=== PATIENT | male | born 1955 | race Caucasian/White ===

== ENCOUNTER 2017-09-10 20:59 | Inpatient (IN) | payer OTHER ==
--- NOTE | 2017-09-10 22:41 | PDOC ---
History of Present Illness <Rachel Christine Angely - Last Filed: 09/11/17 01:38> - General History Source: Patient Exam Limitations: No Limitations - History of Present Illness Initial Comments: 09/10/17 22:45 The patient is a 62 year old male with history of hypertension, hyperlipidemia, and stroke in 2004 brought in by EMS for an episode of right upper extremity weakness this evening. The patient reports he was sitting on his couch drinking a beer at around 8 PM when he noticed he could not grab his drink secondary to RUE weakness. His weakness lasted approximately 15 minutes and resolved spontaneously. On ED evaluation, the patient is without physical complaint. He denies any chest pain or shortness of breath. He denies any nausea, vomiting, or diaphoresis. He denies any headache, blurred vision, or LOC. PCP: Dr. Lyman Denies smoking. Endorses beer and vodka consumption. <Ellen Meehan - Last Filed: 09/11/17 01:48> - General Chief Complaint: Alcohol intoxication Stated Complaint: RIGHT ARM WEAKNESS/INTOX Time Seen by Provider: 09/10/17 21:08 Past History - Suicide/Smoking/Psychosocial Hx Smoking History: Unknown if ever smoked Have you smoked in the past 12 months: No Information on smoking cessation initiated: No Hx Alcohol Use: No Drug/Substance Use Hx: No <Jl Christinepaula Florh - Last Filed: 09/11/17 01:38> <Ellen Meehan - Last Filed: 09/11/17 01:48> - Past Medical History Allergies/Adverse Reactions: Allergies Allergy/AdvReac Type Severity Reaction Status Date / Time No Known Allergies Allergy Verified 09/10/17 21:07 Review of Systems - Review of Systems Able to Perform ROS?: Yes Comments:: 09/10/17 22:49 GENERAL/CONSTITUTIONAL: No fever or chills. No generalized weakness. HEAD, EYES, EARS, NOSE AND THROAT: No change in vision. No ear pain or discharge. No sore throat. CARDIOVASCULAR: No chest pain or shortness of breath. RESPIRATORY: No cough, wheezing, or hemoptysis. GASTROINTESTINAL: No nausea, vomiting, diarrhea or constipation. GENITOURINARY: No dysuria, frequency, or change in urination. MUSCULOSKELETAL: No joint or muscle swelling or pain. No neck or back pain. SKIN: No rash NEUROLOGIC: +RUE weakness x 15 minutes. No headache, vertigo, loss of consciousness. ENDOCRINE: No increased thirst. No abnormal weight change. HEMATOLOGIC/LYMPHATIC: No anemia, easy bleeding, or history of blood clots. ALLERGIC/IMMUNOLOGIC: No hives or skin allergy. <Ellen Meehan - Last Filed: 09/11/17 01:48> *Physical Exam - Vital Signs Last Vital Signs Temp Pulse Resp BP Pulse Ox 98.6 F 87 20 132/76 97 09/10/17 21:07 09/10/17 21:07 09/10/17 21:07 09/10/17 21:07 09/10/17 21:07 <Rachel Christine - Last Filed: 09/11/17 01:38> - Vital Signs Last Vital Signs Temp Pulse Resp BP Pulse Ox 98.6 F 87 20 132/76 97 09/10/17 21:07 09/10/17 21:07 09/10/17 21:07 09/10/17 21:07 09/10/17 21:07 - Physical Exam Comments: 09/10/17 22:49 GENERAL: Awake, alert, and fully oriented, in no acute distress HEAD: No signs of trauma EYES: PERRLA, EOMI, sclera anicteric, conjunctiva clear ENT: Auricles normal inspection, nares patent. Moist mucosa NECK: Normal ROM, supple, no JVD, or masses LUNGS: Breath sounds equal, clear to auscultation bilaterally. No wheezes, and no crackles HEART: Regular rate and rhythm, normal S1 and S2, no murmurs, rubs or gallops ABDOMEN: Soft, nontender, normoactive bowel sounds. No guarding, no rebound. No masses EXTREMITIES: Normal range of motion, no edema. No clubbing or cyanosis. No cords, erythema, or tenderness NEUROLOGICAL: Alert and oriented x 3. Moves all extremities. Face is symmetric. SKIN: Warm, Dry, normal turgor, no rashes or lesions noted. <Ellen Meehan - Last Filed: 09/11/17 01:48> NIH Stroke Scale - Initial Evaluation Level of consciousness: Alert Ask patient the month and their age: Answers both correctly Ask patient to open & close eyes; make fist and let go: Obeys both correctly Best gaze (horizontal eye movement): Normal Visual field testing: No visual field loss Facial paresis (Show teeth/raise eyebrows/close eyes tight): Normal symmetrical movement Motor Function: Left Arm: Normal Motor Function: Right Arm: Normal (extends arm 90 (or 45) degrees for 10 seconds without drift Motor Function: Left Leg: Normal (extends leg 30 degrees for 5 seconds without drift) Motor Function: Right Leg: Normal (extends leg 30 degrees for 5 seconds without drift) Limb Ataxia: No ataxia Sensory(Use pinprick test arms,legs,trunk,face/side to side): Normal Best language (Describe picture, name items, read sentences): No Aphasia Dysarthria (read several words): Normal articulation Extinction and Inattention: No abnormality - Total Score NIH Stroke Scale Score: 0 <Ellen Meehan - Last Filed: 09/11/17 01:48> tPA Exclusion Checklist 0-3hr - Time Elapsed Date last known well: 09/06/17 Time last known well: 20:00 Elaspsed time: 4 Day(s) and 5 Hour(s) and 38 Minutes - Thrombolytic Therapy Candidate Is the patient eligible for Thrombolytic Therapy?: No - Exclusion Criteria 0-3hr SBP greater than 185 or DBP greater than 110mmHg despite tx: No Recent IC/spinal surgery,head trauma or stroke w/in last 3mo: No Hx of previous IC hemorrhage, IC neoplasm, AVM or aneurysm: No Active internal bleeding: No Blding diathesis(low plt ct, inc PTT,INR>1.7 or use of NOAC): No Symptoms suggest subarachnoid hemorrhage: No Arterial puncture at noncompressible site in previous 7 days: No Blood glucose concentration less than 50mg/dL (2.7mmol/L): No - Relative Exclusion Criteria 0-3h Life expectancy <1yr/severe co-morbid illness/GL[employer] O[employer]ATOR on admit: No : No Patient/family refused: No Rapid improvement: Yes Stroke severity too mild: Yes Recent acute NH (w/in previous 3 months): No Seizure at onset with postictal residual neuro impairments: No Major surgery or serious trauma w/in previous 14 days: No Recent GI or hemorrhage (w/in previous 21 days): No - Ineligibility reason(s) Reasons No tPA given: See reason(s) noted above (symptosm totally resolved prior to arrival) <Rachel Christine - Last Filed: 09/11/17 01:38> Heart Score/ECG Review #1 09/11/17 01:48 EKG obtained 1:44. Sinus tachycardia at 105 bpm. Otherwise normal EKG. <Ellen Meehan - Last Filed: 09/11/17 01:48> Critical Care Time/MDM Note - Medical Decision Making Note: 09/11/17 01:23 62-year-old male brought in by ambulance from home after a 15 minute episode of right arm weakness. Patient is alert and conversant, and admits to drinking some beer tonight. He said they right arm numbness has resolved. He was at home watching television when he reached picker packer a bottle and could not hold anything in his hand became aware of the weakness. NIH stroke scale this time is actually 0 Patient denies any fever or chills. No chest pain or abdominal pain or shortness of breath. He denied having any slurred speech, word searching, or confusion. earlier this evening Past medical history significant for hypertension and having a stroke in 2004. The patient states at that time he had right-sided weakness. He had no permanent residual weakness from the 2005 stroke CAT scan did not show any acute bleed, it did show chronic microvascular changes in the right matter, there was no shift, no mass. There is a 1.3 cm focus in the left frontal supraventricular white matter. This could be small vessel disease or infarct of indeterminate age. Concern for TIA -pt given aspirin -will admit forMRI in am and neuro consult <Rachel Christine - Last Filed: 09/11/17 01:38> - Medical Decision Making Note: 09/10/17 22:51 Documentation prepared by Ellen Meehan, acting as medical office supervisor for Rachel Christine MD. 09/11/17 00:[address], reviewed and interpreted by [facility]. Findings: Old small vessel infarct anterior limb left internal capsule. Old small vessel infarct right basal ganglia. Old lacunar infarct right caudate head. Chronic microvascular changes in the cerebral white matter. 1.3 cm focues of low density left frontal supraventricular white matter. This could represent small vessel disease or infarct of indeterminate age. Correlate with clinical symptoms. Please note that infarcts ess than 6 hours from onset may not be detectable on CT. Small vessel disease can also obscure small acute or subacute infarcts. No hemorrhage No mass No shift or herniation. Osseous structures are intact. <Ellen Meehan - Last Filed: 09/11/17 01:48> Discharge Disposition - Discharge Dispostion Admit: Yes <Rachel Christine - Last Filed: 09/11/17 01:38> <Ellen Meehan - Last Filed: 09/11/17 01:48> - Diagnosis TIA (transient ischemic attack) Qualifiers: Transient cerebral ischemia type: unspecified Qualified Code(s): G45.9 - Transient cerebral ischemic attack, unspecified - Referrals Referrals: Lynette Lyman MD [Primary Care Provider] - - Patient Instructions - Post Discharge Activity
[2017-09-11 00:09] LABS: BASOPHIL 0.6 % (0-2.0); EOSINOPHIL 1.4 % (0-4.5); MCH 31.9 pg (25.7-33.7); MCHC 33.9 g/dl (32.0-35.9); MEAN CELL VOLUME 94.1 fl (80-96); MEAN PLT VOLUME 8.8 fl (7.5-11.1); PLATELET COUNT 267 K/MM3 (134-434); RDW 13.2 % (11.9-15.9); WHITE BLOOD COUNT 8.1 K/mm3 (4.0-10.0)
[2017-09-11 00:22] LABS: INR 0.99 (0.82-1.09); PROTHROMBIN TIME (PATIENT) 11.2 SEC (9.98-11.88)
[2017-09-11 00:32] LABS: ALBUMIN 3.7 g/dl (3.4-5.0); ANION GAP 13 (8-16); BILIRUBIN,TOTAL 0.4 mg/dL (0.2-1.0); CALCIUM 8.4 mg/dL (8.5-10.1); CO2 24 mmol/L (21-32); CREATININE 1.2 mg/dL (0.7-1.3); GLUCOSE,RANDOM 88 mg/dL (74-106); SGOT/AST 20 U/L (15-37); SGPT/ALT 21 U/L (12-78); TOT PROT 7.5 g/dl (6.4-8.2)
[2017-09-11 00:35] LABS: ALK PHOS 81 U/L (45-117)
[2017-09-11 00:38] LABS: CPK 101 IU/L (39-308); TROPONIN I < 0.02 ng/ml (0.00-0.05)
[2017-09-11] MEDS ORDERED: ASPIRIN 325 MG TABLET PO ONE (01:17)
--- NOTE | 2017-09-11 02:19 | HP ---
CHIEF COMPLAINT: PCP: HISTORY OF PRESENT ILLNESS: ER course was notable for: (1) (2) (3) Recent Travel: PAST MEDICAL HISTORY: PAST SURGICAL HISTORY: Social History: Smoking: Alcohol: Drugs: Family History: Allergies No Known Allergies Allergy (Verified 09/10/17 21:07) HOME MEDICATIONS: REVIEW OF SYSTEMS CONSTITUTIONAL: Absent: fever, chills, diaphoresis, generalized weakness, malaise, loss of appetite, weight change HEENT: Absent: rhinorrhea, nasal congestion, throat pain, throat swelling, difficulty swallowing, mouth swelling, ear pain, eye pain, visual changes CARDIOVASCULAR: Absent: chest pain, syncope, palpitations, irregular heart rate, lightheadedness , peripheral edema RESPIRATORY: Absent: cough, shortness of breath, dyspnea with exertion, orthopnea, wheezing, stridor, hemoptysis GASTROINTESTINAL: Absent: abdominal pain, abdominal distension, nausea, vomiting, diarrhea, constipation, melena, hematochezia GENITOURINARY: Absent: dysuria, frequency, urgency, hesitancy, hematuria, flank pain, genital pain MUSCULOSKELETAL: Absent: myalgia, arthralgia, joint swelling, back pain, neck pain SKIN: Absent: rash, itching, pallor HEMATOLOGIC/IMMUNOLOGIC: Absent: easy bleeding, easy bruising, lymphadenopathy, frequent infections ENDOCRINE: Absent: unexplained weight gain, unexplained weight loss, heat intolerance, cold intolerance NEUROLOGIC: Absent: headache, focal weakness or paresthesias, dizziness, unsteady gait, seizure, mental status changes, bladder or bowel incontinence PSYCHIATRIC: Absent: anxiety, depression, suicidal or homicidal ideation, hallucinations. PHYSICAL EXAMINATION Vital Signs - 24 hr 09/10/17 21:07 Temperature 98.6 F Pulse Rate 87 Respiratory 20 Rate Blood Pressure 132/76 O2 Sat by Pulse 97 Oximetry (%) GENERAL: Awake, alert, and fully oriented, in no acute distress. HEAD: Normal with no signs of trauma. EYES: Pupils equal, round and reactive to light, extraocular movements intact, sclera anicteric, conjunctiva clear. No lid lag. EARS, NOSE, THROAT: Ears normal, nares patent, oropharynx clear without exudates. Moist mucous membranes. NECK: Normal range of motion, supple without lymphadenopathy, JVD, or masses. LUNGS: Breath sounds equal, clear to auscultation bilaterally. No wheezes, and no crackles. No accessory muscle use. HEART: Regular rate and rhythm, normal S1 and S2 without murmur, rub or gallop. ABDOMEN: Soft, nontender, not distended, normoactive bowel sounds, no guarding, no rebound, no masses. No hepatomegaly or splenomegaly. MUSCULOSKELETAL: Normal range of motion at all joints. No bony deformities or tenderness. No CVA tenderness. UPPER EXTREMITIES: 2+ pulses, warm, well-perfused. No cyanosis. No clubbing. No peripheral edema. LOWER EXTREMITIES: 2+ pulses, warm, well-perfused. No calf tenderness. No peripheral edema. NEUROLOGICAL: Cranial nerves II-XII intact. Normal speech. Normal gait. PSYCHIATRIC: Cooperative. Good eye contact. Appropriate mood and affect. SKIN: Warm, dry, normal turgor, no rashes or lesions noted, normal capillary refill. Laboratory Results - last 24 hr 09/10/17 09/10/17 09/10/17 23:30 23:30 23:30 WBC 8.1 RBC 4.30 Hgb 13.7 Hct 40.4 MCV 94.1 MCH 31.9 MCHC 33.9 RDW 13.2 Plt Count 267 MPV 8.8 Neutrophils % 60.0 Lymphocytes % 28.5 Monocytes % 9.5 Eosinophils % 1.4 Basophils % 0.6 PT with INR 11.20 INR 0.99 Sodium 141 Potassium 3.7 Chloride 104 Carbon Dioxide 24 Anion Gap 13 BUN 19 H Creatinine 1.2 Creat Clearance w eGFR > 60 Random Glucose 88 Calcium 8.4 L Total Bilirubin 0.4 AST 20 ALT 21 Alkaline Phosphatase 81 Creatine Kinase Troponin I Total Protein 7.5 Albumin 3.7 Alcohol, Quantitative 09/10/17 09/10/17 23:30 23:30 WBC RBC Hgb Hct MCV MCH MCHC RDW Plt Count MPV Neutrophils % Lymphocytes % Monocytes % Eosinophils % Basophils % PT with INR INR Sodium Potassium Chloride Carbon Dioxide Anion Gap BUN Creatinine Creat Clearance w eGFR Random Glucose Calcium Total Bilirubin AST ALT Alkaline Phosphatase Creatine Kinase 101 Troponin I < 0.02 Total Protein Albumin Alcohol, Quantitative 50.8 H* ASSESSMENT/PLAN:
--- NOTE | 2017-09-11 02:30 | PN ---
Teaching Attending Note Name of Resident: Mercedes Figueroa ATTENDING PHYSICIAN STATEMENT I saw and evaluated the patient. I reviewed the resident's note and discussed the case with the resident. I agree with the resident's findings and plan as documented. 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 States he had 3 vodkas and one beer and noticed when he was reaching for a cup, his hand felt weak and he couldn't grasp. No loss of sensation. No headache or visual changes. No dizziness or lightheadedness. No chest pain, pressure or shortness of breath. OBJECTIVE: Physical: VS: Vital Signs Period Temp Pulse Resp BP Sys/Rojas Pulse Ox Last 24 Hr 98.6 F 87 20 132/76 97 GEN: NAD, AA0X3, Resting in bed HEENT: NCAT, PERRL, throat without erythema or exudates CARD: RRR S1, S2 RESP: CTAB ABD: BSX4, NTD to palpation EXT: - C/C/E NEURO: CN II-XII Intact, MS +5/5 Bilateral UE/LE CBCD WBC 8.1 K/mm3 (4.0-10.0) 09/10/17 23:30 RBC 4.30 M/mm3 (4.00-5.60) 09/10/17 23:30 Hgb 13.7 GM/dL (11.7-16.9) 09/10/17 23:30 Hct 40.4 % (35.4-49) 09/10/17 23:30 MCV 94.1 fl (80-96) 09/10/17 23:30 MCHC 33.9 g/dl (32.0-35.9) 09/10/17 23:30 RDW 13.2 % (11.9-15.9) 09/10/17 23:30 Plt Count 267 K/MM3 (134-434) 09/10/17 23:30 MPV 8.8 fl (7.5-11.1) 09/10/17 23:30 CMP Sodium 141 mmol/L (136-145) 09/10/17 23:30 Potassium 3.7 mmol/L (3.5-5.1) 09/10/17 23:30 Chloride 104 mmol/L (98-107) 09/10/17 23:30 Carbon Dioxide 24 mmol/L (21-32) 09/10/17 23:30 Anion Gap 13 (8-16) 09/10/17 23:30 BUN 19 mg/dL (7-18) H 09/10/17 23:30 Creatinine 1.2 mg/dL (0.7-1.3) 09/10/17 23:30 Creat Clearance w eGFR > 60 (>60) 09/10/17 23:30 Random Glucose 88 mg/dL (74-106) 09/10/17 23:30 Calcium 8.4 mg/dL (8.5-10.1) L 09/10/17 23:30 Total Bilirubin 0.4 mg/dL (0.2-1.0) 09/10/17 23:30 AST 20 U/L (15-37) 09/10/17 23:30 ALT 21 U/L (12-78) 09/10/17 23:30 Alkaline Phosphatase 81 U/L (45-117) 09/10/17 23:30 Total Protein 7.5 g/dl (6.4-8.2) 09/10/17 23:30 Albumin 3.7 g/dl (3.4-5.0) 09/10/17 23:30 CARDIAC ENZYMES Creatine Kinase 101 IU/L (39-308) 09/10/17 23:30 Troponin I < 0.02 ng/ml (0.00-0.05) 09/10/17 23:30 EKG: Sinus tach [address]-T changes CT HEAD- Old small vessel infarct anterior limb internal capsule Old Small vessel infarct right basal ganglia Chronic microvascular changes white mater 1.3 cm focus L. frontal supraventricular white matter ETOH Level: 50 ASSESSMENT AND PLAN: 62 M with pmhx of htn, hld, and cva 2004 who presents with right upper extremity weakness being admitted for possible CVA/TIA 1.) CVA/TIA - ASA - Lipid panel/A1c - ECHO/Carotid US - Statin -TSH/B12/Folate - Trend Trop - Monitor on tele - MRI Brain wo Con - Neuro Consult - CT Head as above 2.) HTN - Not on any home meds - Monitor 3.) HLD - Not taking statin - Lipid panel - Atorvastatin 4.) Etoh abuse - CIWA - Banana bag - Thiamine/Folic A daily 5.) Dvt Ppx - Low Risk - SCDs Place in Obs-Tele
--- NOTE | 2017-09-11 03:30 | HP ---
CHIEF COMPLAINT: RUE weakness PCP: Dr. Lynette Lyman HISTORY OF PRESENT ILLNESS: 62M w/ hx of CVA (2004) and HTN who presents with RUE weakness. Pt reports that he was in his [place] until 8pm last night when he was drinking beer in his living room, and he developed 15 minutes of weakness in his right handgrip preventing him from picking up the beer as well as right forearm numbness. He denies weakness in any other muscle groups, headache, lightheadedness, dysarthria, aphasia, chest pain, palpitations, SOB, diaphoresis, n/v/d/c, and dysuria. He states that he had a CVA in 2004 with complete left-sided weakness which completely resolved, and he was admitted at [facility]. Since that episode, he denies any other stroke-like symptoms. He reports that he takes his medications as described, and he sees a PCP regularly. In terms of his alcohol consumption, pt states that he drinks 3 glasses of vodka and a beer daily since the age of 19. He has quit multiple times cold- turkey, denies ever having withdrawal symptoms, and denies ever going to rehab for it. ER course was notable for: (1) labs (2) imaging (3) given ASA Recent Travel: PAST MEDICAL HISTORY: CVA (2004) and HTN PAST SURGICAL HISTORY: denies Social History: Smoking: denies Alcohol: 3 glasses of vodka and a beer daily since the age of 19 Drugs: denies Family History: father- HTN Allergies No Known Allergies Allergy (Verified 09/10/17 21:07) HOME MEDICATIONS: REVIEW OF SYSTEMS CONSTITUTIONAL: Absent: fever, chills, diaphoresis, generalized weakness, malaise, loss of appetite, weight change HEENT: Absent: rhinorrhea, nasal congestion, throat pain, throat swelling, difficulty swallowing, mouth swelling, ear pain, eye pain, visual changes CARDIOVASCULAR: Absent: chest pain, syncope, palpitations, irregular heart rate, lightheadedness , peripheral edema RESPIRATORY: Absent: cough, shortness of breath, dyspnea with exertion, orthopnea, wheezing, stridor, hemoptysis GASTROINTESTINAL: Absent: abdominal pain, abdominal distension, nausea, vomiting, diarrhea, constipation, melena, hematochezia GENITOURINARY: Absent: dysuria, frequency, urgency, hesitancy, hematuria, flank pain, genital pain MUSCULOSKELETAL: Absent: myalgia, arthralgia, joint swelling, back pain, neck pain SKIN: Absent: rash, itching, pallor HEMATOLOGIC/IMMUNOLOGIC: Absent: easy bleeding, easy bruising, lymphadenopathy, frequent infections ENDOCRINE: Absent: unexplained weight gain, unexplained weight loss, heat intolerance, cold intolerance NEUROLOGIC: Absent: headache, dizziness, unsteady gait, seizure, mental status changes, bladder or bowel incontinence Present: temporary right hand weakness and forearm numbness PSYCHIATRIC: Absent: anxiety, depression, suicidal or homicidal ideation, hallucinations. PHYSICAL EXAMINATION Vital Signs - 24 hr 09/10/17 21:07 Temperature 98.6 F Pulse Rate 87 Respiratory 20 Rate Blood Pressure 132/76 O2 Sat by Pulse 97 Oximetry (%) GENERAL: Awake, alert, and fully oriented, in no acute distress. HEAD: Normal with no signs of trauma. EYES: Pupils equal, round and reactive to light, extraocular movements intact, sclera anicteric, conjunctiva clear. No lid lag. EARS, NOSE, THROAT: Ears normal, nares patent, oropharynx clear without exudates. Moist mucous membranes. NECK: Normal range of motion, supple without lymphadenopathy, JVD, or masses. LUNGS: Breath sounds equal, clear to auscultation bilaterally. No wheezes, and no crackles. No accessory muscle use. HEART: Regular rate and rhythm, normal S1 and S2 without murmur, rub or gallop. ABDOMEN: Soft, nontender, not distended, normoactive bowel sounds, no guarding, no rebound, no masses. No hepatomegaly or splenomegaly. MUSCULOSKELETAL: Normal range of motion at all joints. No bony deformities or tenderness. No CVA tenderness. UPPER EXTREMITIES: 2+ pulses, warm, well-perfused. No cyanosis. No clubbing. No peripheral edema. LOWER EXTREMITIES: 2+ pulses, warm, well-perfused. No calf tenderness. No peripheral edema. NEUROLOGICAL: Cranial nerves II-XII intact. No facial droop, tongue and uvula midline. Normal speech. gait not observed. [id number] normal. No dysdiadochokinesia. No arm drift. Strength 5/5 in b/l handgrip, biceps, triceps , and deltoids as well as hip flexors, knee flexion, knee extension, plantar flexion and extension. Sensory function normal to touch and equal b/l. AAOx3. PSYCHIATRIC: Cooperative. Good eye contact. Appropriate mood and affect. SKIN: Warm, dry, normal turgor, no rashes or lesions noted, normal capillary refill. Laboratory Results - last 24 hr 09/10/17 09/10/17 09/10/17 23:30 23:30 23:30 WBC 8.1 RBC 4.30 Hgb 13.7 Hct 40.4 MCV 94.1 MCH 31.9 MCHC 33.9 RDW 13.2 Plt Count 267 MPV 8.8 Neutrophils % 60.0 Lymphocytes % 28.5 Monocytes % 9.5 Eosinophils % 1.4 Basophils % 0.6 PT with INR 11.20 INR 0.99 Sodium 141 Potassium 3.7 Chloride 104 Carbon Dioxide 24 Anion Gap 13 BUN 19 H Creatinine 1.2 Creat Clearance w eGFR > 60 Random Glucose 88 Calcium 8.4 L Total Bilirubin 0.4 AST 20 ALT 21 Alkaline Phosphatase 81 Creatine Kinase Troponin I Total Protein 7.5 Albumin 3.7 Alcohol, Quantitative 09/10/17 09/10/17 23:30 23:30 WBC RBC Hgb Hct MCV MCH MCHC RDW Plt Count MPV Neutrophils % Lymphocytes % Monocytes % Eosinophils % Basophils % PT with INR INR Sodium Potassium Chloride Carbon Dioxide Anion Gap BUN Creatinine Creat Clearance w eGFR Random Glucose Calcium Total Bilirubin AST ALT Alkaline Phosphatase Creatine Kinase 101 Troponin I < 0.02 Total Protein Albumin Alcohol, Quantitative 50.8 H* EKG: sinus tachycardia, QTc of 433 CT Head: reviewed and interpreted by [facility]. Findings: Old small vessel infarct anterior limb left internal capsule. Old small vessel infarct right basal ganglia. Old lacunar infarct right caudate head. Chronic microvascular changes in the cerebral white matter. 1.3 cm focues of low density left frontal supraventricular white matter. This could represent small vessel disease or infarct of indeterminate age. Correlate with clinical symptoms. Please note that infarcts ess than 6 hours from onset may not be detectable on CT. Small vessel disease can also obscure small acute or subacute infarcts. No hemorrhage No mass No shift or herniation. Osseous structures are intact. ASSESSMENT/PLAN: 62M w/ hx of CVA (2004) and HTN who presents with brief episode of RUE weakness and numbness, found to have normal neurological exam, normal labs, no acute hemorrhage on CT. #RUE weakness and numbness- likely 2/2 TIA given hx of CVA and rapid resolution of symptoms -neurology consulted, Dr. Conroy, f/u recs -f/u a1c, TFTs, lipid panel, troponin, TTE, carotid doppler, MRI brain w/o contrast -pt given ASA 325 and atorvastatin 80 -neuro checks q4h -speech and swallow consulted, f/u recs -cardiac telemetry #HTN -continue home amlodipine and lisinopril -monitor BP #alcohol abuse -CIWA score of zero -librium protocol if withdrawal symptoms begin, monitor CIWA score -Dr. Ulloa consulted, f/u recs -banana bag -thiamine, folic acid #FEN/PPx -no fluids -electrolytes wnl -NPO for now pending speech and swallow -no GI ppx indicated -SCDs for now Dispo: admit to observation- telemetry for TIA -Raad Hooper MD PGY1 Visit type - Emergency Visit Emergency Visit: Yes ED Registration Date: 09/11/17 Care time: The patient presented to the Emergency Department on the above date and was hospitalized for further evaluation of their emergent condition. - New Patient This patient is new to me today: Yes Date on this admission: 09/11/17 - Critical Care Critical Care patient: No
[2017-09-11] MEDS ORDERED: ATORVASTATIN CA 80 MG TABLET (FP) PO ONE (03:32)
[2017-09-11] MEDS ORDERED: FOLIC ACID INJECTION - 1 MG, THIAMINE HCL 100 MG, MULTIVIT INJECTION ADULT 10 ML in SOD... IVPB ONE (03:33)
[2017-09-11] MEDS ORDERED: SODIUM CHLORIDE 1,000 ML IV SCH (04:30)
[2017-09-11] MEDS ORDERED: HEPARIN NA (PORCINE) 5,000 UNITS/ML 1ML VIAL SQ SCH (06:00)
[2017-09-11 06:44] LABS: BASOPHIL 0.5 % (0-2.0); EOSINOPHIL 1.1 % (0-4.5); MCH 31.6 pg (25.7-33.7); MCHC 33.2 g/dl (32.0-35.9); MEAN CELL VOLUME 95.2 fl (80-96); MEAN PLT VOLUME 8.6 fl (7.5-11.1); NEUTROPHILS 64.8 % (42.8-82.8); PLATELET COUNT 244 K/MM3 (134-434); RDW 13.5 % (11.9-15.9); WHITE BLOOD COUNT 6.7 K/mm3 (4.0-10.0)
[2017-09-11] MEDS ORDERED: chlordiazePOXIDE HCL 25 MG CAPSULE PO PRN (06:51)
[2017-09-11 07:25] LABS: ALBUMIN 3.3 g/dl (3.4-5.0); ANION GAP 6 (8-16); CALCIUM 8.2 mg/dL (8.5-10.1); CHOLESTEROL 188 mg/dL (50-200); CO2 26 mmol/L (21-32); GLUCOSE,RANDOM 99 mg/dL (74-106); MAGNESIUM 2.2 mg/dL (1.8-2.4); PHOSPHOROUS 3.4 mg/dL (2.5-4.9); SGOT/AST 15 U/L (15-37); SGPT/ALT 18 U/L (12-78)
[2017-09-11 07:32] LABS: ALK PHOS 72 U/L (45-117); BILIRUBIN,TOTAL 0.5 mg/dL (0.2-1.0); THYROID STIMULATING HORMONE 2.88 uIU/ml (0.358-3.74); TOT PROT 6.3 g/dl (6.4-8.2); TROPONIN I < 0.02 ng/ml (0.00-0.05)
[2017-09-11 13:32] VITALS: BMI 28.7
[2017-09-11] MEDS ORDERED: chlordiazePOXIDE HCL 25 MG CAPSULE ONE ×2 (14:25→18:06)
[2017-09-11] MEDS ORDERED: ASPIRIN 81 MG CHEWABLE TABLETS ONE (14:26)
[2017-09-11] MEDS: ASPIRIN 81 MG CHEWABLE TABLETS PO SCH (14:30)
[2017-09-11] MEDS: chlordiazePOXIDE HCL 25 MG CAPSULE PO SCH ×3 (14:30→22:23)
--- NOTE | 2017-09-11 15:16 | CONSULT ---
Admitting History and Physical - Primary Care Physician PCP: Stephenie Weston - Admission History of Present Illness: Per EMR: HISTORY OF PRESENT ILLNESS: 62M w/ hx of CVA (2004) and HTN who presents with RUE weakness. Pt reports that he was in his USOH until 8pm last night when he was drinking beer in his living room, and he developed 15 minutes of weakness in his right handgrip preventing him from picking up the beer as well as right forearm numbness. He denies weakness in any other muscle groups, headache, lightheadedness, dysarthria, aphasia, chest pain, palpitations, SOB, diaphoresis, n/v/d/c, and dysuria. He states that he had a CVA in 2004 with complete left-sided weakness which completely resolved, and he was admitted at [facility]. Since that episode, he denies any other stroke-like symptoms. He reports that he takes his medications as described, and he sees a PCP regularly. In terms of his alcohol consumption, pt states that he drinks 3 glasses of vodka and a beer daily since the age of 19. He has quit multiple times cold- turkey, denies ever having withdrawal symptoms, and denies ever going to rehab for it. Selected Entries 09/10/17 09/11/17 09/11/17 21:07 03:45 06:32 Temperature 98.6 F 97.8 F 98.3 F Laboratory Tests 09/11/17 06:10 WBC 6.7 History Source: Patient, Medical Record Limitations to Obtaining History: No Limitations - Smoking History Smoking history: Unknown if ever smoked Have you smoked in the past 12 months: No - Alcohol/Substance Use Hx Alcohol Use: No History - Admission Reason For Visit: TRANSIENT CEREBRAL ISCHEMIA - Diagnostics CT Scan: Report Reviewed (Old small vessel infarct anterior limb left internal capsule. Old small vessel infarct right basal ganglia. Old lacunar infarct right caudate head. Chronic microvascular changes in the cerebral white matter. 1.3 cm focues of low density left frontal supraventricular white matter. This could represent small vessel disease or infarct of indeterminate age. Correlate with clinical symptoms. Please note that infarcts ess than 6 hours from onset may not be detectable on CT. Small vessel disease can also obscure small acute or subacute infarcts. No hemorrhage No mass No shift or herniation. Osseous structures are intact.) MRI: Pending - General Mental Status: Alert and Oriented, Awake and Alert, Able to Follow Commands Attention: Intact Ability to Follow Directions: Excellent Head/Neck Control: WFL - Hearing Hearing: Normal Speech Evaluation - Communication Primary Language: TAJIK Communication: Yes: Within Normal Limits Oral Expression Ability: Yes: No Impairment - Speech Production Able to Make Needs Known: Yes: WNL Intelligibility: Yes: WNL - Speech Characteristics Voice Loudness: Normal Voice Pitch: Yes: Normal Voice Phonatory-based Quality: Yes: Normal Speech Pattern: Normal Speech Clarity: < 100% Nasal Resonance: Normal Articulation: Yes: Precise Rate of Speech: Intact - Language/Auditory Comprehension Follows: Yes: 1 Stage Simple Commands - Language/Verbal Expression Able to Respond to Simple Queries: Yes: WNL Able to Communicate Wants and Needs: Yes: WNL Functional Communication Status: Yes: WNL Attention: Yes: Intact - Memory/Perception manager intermediate Memory: Yes: WNL Short Term Memory: Yes: WNL - Swallow Evaluation/Bedside Assessment Current Nutritional Intake: Regular (tolerated lunch), Thin Liquids Oral Secretions: Yes: WFL Dentition: Yes: Adequate Facial Symmetry at Rest: Facial Droop Left (slight) Facial Symmetry on Retraction: Symmetrical Facial Movement: Controlled Sensation: Normal Against Resistance Opening: Normal Against Resistance Closing: Normal Pucker Lips: Normal Smile: Normal Lingual Movement: Normal, Symmetric Lingual Speed of Movement: Normal Lingual Movement Strgth Against Opposition: Normal Lingual Movement Characteristics: Normal Velopharyngeal Movement: Normal Laryngeal Elevation: WFL Laryngeal Movement: Able to Palpate Rate of Intake: WFL Bolus Size: WFL Chewing: WFL Oral Prep Time: WFL A-P Transit: WFL Pocketing: None Timing of Swallow: WFL Coughing/Throat Clear: No Change in Voice: No Recommendations - Speech Evaluation, Impression/Plan Impression: Speech,language,cognition,swallowing intact - Dysphagia Impressions/Plan Swallowing Skills: WFL Dysphagia Impressions: No Impairment *Silent aspiration: cannot be R/O at bedside Recommendations: Neuro Consult (pending) - Recommendations Diet Consistency: Regular Medication Administration: Whole with water Liquids: Thin Liquids
--- NOTE | 2017-09-11 16:02 | CONSULT ---
Consult Detox [facility] Reason for Current Admission/Consult: alcohol use Referred by:: addison Hooper - History History of Present Illness: 62 yo m admitted from ED with presumed TIA and found to have a blood alcohol level >50. Patient was started on a librium detox in the ED yesterday, unable to see him as he was having an MRI. Today patient was sleeping in bed, give h/ o daily alcohol use 4 vodka drinks and a beer but no history of alcohol withdrawal sx when he does not drink, no tremors, sweats or seizures in past, no DTS. Has never been in treatment. Father alcoholic and has increased his daily consumption since retiring 1 year ago. SAys he does not need librium and feels oversedated. PMHX HTN - History Source History Provided By: Patient, Medical Record Limitations to Obtaining History: No Limitations - Alcohol/Substance Use Hx Alcohol Use: Yes (4 vodka drinks and beer daily) Hx Substance Use: No Hx Substance Use Treatment: No - Current Drug/Alcohol Use Alcohol Route: Oral Frequency: Daily Amount used: 4 vodka and 1 beer daily Age of first use: 18 Date of Last Use: 09/11/17 - Significant Medical Findings: sedated male lying/sleeping comfortably in bed, a and o x3, no tremors, no sweats, no hallucinations CIWA Score - CIWA Score Nausea/Vomitin-No Nausea/No Vomiting Muscle Tremors: None Anxiety: 0-No Anxiety, at Ease Agitation: 0-Normal Activity Paroxysmal Sweats: No Perspiration Orientation: 0-Oriented Tacttile Disturbances: 0-None Auditory Disturbances: 0-None Visual Disturbances: 0-None Headache: 0-None Present CIWA-Ar Total Score: 0 Assessment Plan - Diagnosis (1) Alcohol dependence Status: Acute Qualifiers: Substance use status: uncomplicated Qualified Code(s): F10.20 - Alcohol dependence, uncomplicated - Plan Plan: Patient stable, comfortable, no withdrawal sx noted at this time, sedated on librium detox protocol as ordered, would hold librium for now except at bedtime (25mg ordered for sleep) and monitor for withdrawal sx using symptom triggered dosing. vitamins ordered (iron and folic acid) and oral thiamine 100mg. Refer [facility] for intensive alcohol outpatient treatment when discharged. Based on his history he should be monitored closely for withdrawal and given librium as needed, prn dosing decreased to 15mg. control BP. Call if questions Junior Ulloa MD [phone] - Medication Detox Regimen/Protocol: Librium
--- NOTE | 2017-09-11 17:28 | EKG ---
Test Reason : Blood Pressure : / mmHG Vent. Rate : 105 BPM Atrial Rate : 105 BPM P-R Int : 132 ms QRS Dur : 082 ms QT Int : 328 ms P-R-T Axes : 049 000 017 degrees QTc Int : 433 ms SINUS TACHYCARDIA OTHERWISE NORMAL ECG WHEN COMPARED WITH ECG OF 11-SEP-2017 01:44, NO SIGNIFICANT CHANGE WAS FOUND Confirmed by JEANA STEARNS MD ([id number]) on 09/11/2017 5:27:59 PM Referred By: Confirmed By:JEANA STEARNS MD
--- NOTE | 2017-09-11 22:08 | CONSULT ---
Consult - text type - Consultation Consultation Note: NEUROLOGY CONSULTATION is greatly appreciated: This 62 yo RH man lives alone. PMH sig for HTN and Chol for which he receives lisinopril (10 mg) and amlodipine (10 mg) from his PCP, Kimberly Lyman. -FH of strokes In 1983, at age 29, he suffered lower visual field loss "in the right eye" which was attributed to stroke. In 2004 he suffered an episode of left sided numbness and weakness which "resolved in a few hours." Last night he had right arm weakness and couldn't lift his beer to his lips. He claims it improved in "20 mins." CT of head (reviewed): mod atrophy and diffuse, chronic, periventricular vascular changes. MRI of Brain (reviewed): Moderate atrophy with striking, chronic, B/L Basal ganglia lacunar infarcts, scattered white matter changes (bridgett R parietal). Carotid duplex dopplers: Moderate intimal thickening without stenosis or hemodynamic changes. EXAM: No bruits. No head injury. Cor: Reg. NEURO: Mild OMS. Slight dysarthria Full kovacs and EOM's. Reduced tongue SAE's. Gag OK Motor: Left drift. Decreased SAE's L>R. Brisk reflexes on the left. Left Babinski. Coord: No obvious dystaxia Sensory: Normal Gait: B/L circumduction. Shuffling. IMP: Multiple B/L strokes of Varying ages. Chronic, mild, left spastic hemiparesis. New Right cerebral TIA (More likely a new lacunar CVA) MRI Pattern more suggestive of a vascular then a demyelinating etiology. SUGGEST: Aggressive control of blood pressure and Lipids. Statin Rx even if Chol is "normal." Check TG's, B12, Homocysteine, methylmalonic acid. Telemetry, Cardiology consultation, Echocardiogram Hematology consultation to evaluate for coagulopathy/ hypercoaguable states. CADASIL genetic testing Plavix 75 mg and ASA 81 mg for now. PT for gait Thank you very much, Jim Conroy MD
[2017-09-11] MEDS: THIAMINE HCL 200 MG/2 ML VIAL IVPB SCH (22:22)
[2017-09-12] MEDS: THIAMINE HCL 200 MG/2 ML VIAL IVPB SCH (02:00)
[2017-09-12] MEDS: chlordiazePOXIDE HCL 25 MG CAPSULE PO SCH (05:58)
[2017-09-12] MEDS ORDERED: chlordiazePOXIDE 5 MG CAPSULE PO PRN (09:06)
[2017-09-12] MEDS: THIAMINE HCL 100 MG TABLET (FP) PO SCH ×2 (09:31→21:39)
[2017-09-12] MEDS: amLODIPine BESYLATE 10 MG TABLET (FP) PO SCH (09:32)
[2017-09-12] MEDS: LISINOPRIL 10 MG TABLET (FP) PO SCH (09:32)
[2017-09-12] MEDS: ASPIRIN 81 MG CHEWABLE TABLETS PO SCH (09:32)
[2017-09-12] MEDS ORDERED: chlordiazePOXIDE HCL 25 MG CAPSULE PO SCH ×2 (11:00→22:00)
--- NOTE | 2017-09-12 12:29 | DS ---
Physical Exam: SUBJECTIVE: Patient seen and examined OBJECTIVE: Vital Signs Period Temp Pulse Resp BP Sys/Rojas Pulse Ox Last 24 Hr 97.8 F-98.7 F 67-88 18-20 125-143/74-90 95-97 PHYSICAL EXAM GENERAL: The patient is awake, alert, and fully oriented, in no acute distress. HEAD: Normal with no signs of trauma. EYES: PERRL, extraocular movements intact, sclera anicteric, conjunctiva clear. ENT: Ears normal, nares patent, oropharynx clear without exudates, moist mucous membranes. NECK: Trachea midline, full range of motion, supple. LUNGS: Breath sounds equal, clear to auscultation bilaterally, no wheezes, no crackles, no accessory muscle use. HEART: Regular rate and rhythm, S1, S2 without murmur, rub or gallop. ABDOMEN: Soft, nontender, nondistended, normoactive bowel sounds, no guarding, no rebound, no hepatosplenomegaly, no masses. EXTREMITIES: 2+ pulses, warm, well-perfused, no edema. NEUROLOGICAL: Cranial nerves II through XII grossly intact. Normal speech, gait not observed. PSYCH: Normal mood, normal affect. SKIN: Warm, dry, normal turgor, no rashes or lesions noted. LABS HOSPITAL COURSE: Date of Admission:09/11/17 Date of Discharge: 09/12/17 Discharge Summary Reason For Visit: TRANSIENT CEREBRAL ISCHEMIA Current Active Problems Alcohol dependence (Acute) TIA (transient ischemic attack) (Acute) Condition: Stable - Instructions Diet, Activity, Other Instructions: Please return to the ED for any new, persistent, or worsening symptoms. Follow up with your PCP in 1week Take new and regular medications as directed and until completed Abstain from drink alcohol Be carful when shaving and cooking as to not cause bleeding while taking aspirin and plavix together Follow up with neurology and cardiology as outpt Referrals: Jim Conroy MD [Staff Physician] - Lynette Lyman MD [Primary Care Provider] - Jamie Shannon MD [Staff Physician] - Disposition: HOME - Home Medications Comprehensive Discharge Medication List: Ambulatory Orders Amlodipine Besylate 10 mg PO DAILY 09/12/17 Aspirin [ASA -] 81 mg PO DAILY #30 tab.chew 09/12/17 Atorvastatin Ca [Lipitor] 10 mg PO HS #30 tablet 09/12/17 Clopidogrel Bisulfate [Plavix -] 75 mg PO DAILY #30 tablet 09/12/17 Folic Acid - 1 mg PO DAILY #30 tablet 09/12/17 Lisinopril [Prinivil -] 40 mg PO DAILY 09/12/17 Thiamine HCl [Vitamin B1 -] 100 mg PO HS #30 tablet 09/12/17
[2017-09-12] MEDS: PRENATAL VITAMINS W/ FOLIC ACID TABLET (FP) PO SCH (16:44)
--- NOTE | 2017-09-12 18:42 | PN ---
Physical Exam: SUBJECTIVE: Patient seen and examined this AM. No acute issues, feeling well, numbness resolved. He was to be discharged after PT eval, PT did not return to the floor, later in the evening the pt had elevated diastolic blood pressures. OBJECTIVE: Vital Signs Period Temp Pulse Resp BP Sys/Rojas Pulse Ox Last 24 Hr 97.7 F-98.7 F 67-88 20-20 125-154/74-107 95-96 PE Neuro: alert, awake, cn 2-12intact Pulm: CTAB CV: s1 s2 rrr no mrg Abd: s nt nd + bs Ext: Warm no le edema Active Medications Generic Name Dose Route Start Last Admin Trade Name Freq PRN Reason Stop Dose Admin Amlodipine Besylate 10 mg 09/12/17 10:00 09/12/17 09:32 Norvasc - PO 10 mg DAILY MANOLO Administration Aspirin 81 mg 09/11/17 12:00 09/12/17 09:32 Asa - PO 81 mg DAILY MANOLO Administration Chlordiazepoxide HCl 15 mg 09/12/17 09:06 Librium - PO Q4H PRN WITHDRAWAL(CONT SUBST) Chlordiazepoxide HCl 25 mg 09/12/17 22:00 Librium - PO HS MANOLO Lisinopril 10 mg 09/12/17 10:00 09/12/17 09:32 Prinivil PO 10 mg DAILY MANOLO Administration Multivit/Folic Acid/Iron 1 tab 09/12/17 09:15 09/12/17 16:44 Vitamins (Sjr) - PO Not Given DAILY MANOLO Thiamine HCl 100 mg 09/12/17 09:15 09/12/17 09:31 Vitamin B1 - PO 100 mg HS MANOLO Administration Imaging: - CTH: mod atrophy and diffuse, chronic, periventricular vascular changes. - MRI of Brain: Moderate atrophy with striking, chronic, B/L Basal ganglia lacunar infarcts, scattered white matter changes (bridgett R parietal). - Carotid dopplers: no stenosis or hemodynamic changes. Assessment: 62 M with pmhx of htn, hld, and cva 2004 who presents with right upper extremity weakness being admitted for possible CVA/TIA Plan: 1. CVA/TIA - MRI brain with possible new right cerebral TIA ?new lacunar CVA - Started plavix - ASA - Started lipitor 10mg HS - TSH wnl - Outpt tests Homocysteine, methylmalonic acid, neuro f/u - Heme work up as outpt - PT eval 2. HTN - Home meds: lisinopril 40mg daily, norvasc 10mg daily - For elevated diastolic give x1 dose hydralazine - Possible elevation due to reduced dose of lisinopril given today - Monitor 3. HLD - Started lipitor 4. Etoh abuse - Not in withdrawal - Started thiamine, folic acid Dispo: - Home after PT eval Visit type - Emergency Visit Emergency Visit: Yes ED Registration Date: 09/11/17 Care time: The patient presented to the Emergency Department on the above date and was hospitalized for further evaluation of their emergent condition. - New Patient This patient is new to me today: Yes Date on this admission: 09/12/17 - Critical Care Critical Care patient: No
[2017-09-12] MEDS ORDERED: hydrALAZINE HCL 10 MG TABLET PO ONE (18:49)
[2017-09-13] MEDS ORDERED: ATORVASTATIN CA 40 MG TABLET (FP) PO SCH (08:00)
[2017-09-13 08:17] VITALS: BP 124/85; PULSE 84; TEMP 98.1
[2017-09-13] MEDS: CLOPIDOGREL BISULFATE 75 MG TABLET (FP) PO SCH ×2 (09:52→09:58)
[2017-09-13] MEDS: ASPIRIN 81 MG CHEWABLE TABLETS PO SCH (09:52)
[2017-09-13] MEDS: LISINOPRIL 10 MG TABLET (FP) PO SCH (09:53)
[2017-09-13] MEDS: amLODIPine BESYLATE 10 MG TABLET (FP) PO SCH (09:53)
[2017-09-13] MEDS: PRENATAL VITAMINS W/ FOLIC ACID TABLET (FP) PO SCH (09:53)
[2017-09-13] MEDS ORDERED: chlordiazePOXIDE 5 MG CAPSULE PO SCH (11:00)
--- NOTE | 2017-09-13 11:09 | PN ---
Progress Note, [employer] - Note Progress Note: Neuro IMP:Multiple B/L strokes of Varying ages. Chronic, mild, left spastic hemiparesis. New Right cerebral TIA (More likely a new lacunar CVA) MRI Pattern more suggestive of a vascular then a demyelinating etiology. Selected Entries 09/12/17 09/12/17 09/12/17 02:00 14:00 17:00 Breakfast Temperature 97.8 F 97.7 F 98.0 F 09/12/17 09/13/17 09/13/17 20:53 02:00 06:03 Breakfast Temperature 97.9 F 97.4 F L 98 F 09/13/17 09/13/17 09/13/17 06:22 08:16 10:19 Breakfast 100% Temperature 98 F 98.1 F Laboratory Tests 09/11/17 06:10 WBC 6.7 Tolerating reg diet,thin liquid. No further f/u indicated.
--- NOTE | 2017-09-13 15:00 | DS ---
Physical Examination Vital Signs: Vital Signs Temperature 98.1 F 09/13/17 08:16 Pulse Rate 84 09/13/17 08:16 Respiratory Rate 16 09/13/17 08:16 Blood Pressure 124/85 09/13/17 08:16 O2 Sat by Pulse Oximetry (%) 96 09/13/17 08:00 Labs: CBC, BMP 09/11/17 06:10 09/11/17 06:10 Discharge Summary Reason For Visit: TRANSIENT CEREBRAL ISCHEMIA Current Active Problems Alcohol dependence (Acute) TIA (transient ischemic attack) (Acute) Condition: Stable - Instructions Diet, Activity, Other Instructions: Please return to the ED for any new, persistent, or worsening symptoms. Follow up with your PCP in 1week Take new and regular medications as directed and until completed Abstain from drink alcohol Be carful when shaving and cooking as to not cause bleeding while taking aspirin and plavix together Follow up with neurology and cardiology as outpt Referrals: Jim Conroy MD [Staff Physician] - Lynette Lyman MD [Primary Care Provider] - Disposition: HOME - Home Medications Comprehensive Discharge Medication List: Ambulatory Orders Amlodipine Besylate 10 mg PO DAILY 09/12/17 Aspirin [ASA -] 81 mg PO DAILY #30 tab.chew 09/12/17 Clopidogrel Bisulfate [Plavix -] 75 mg PO DAILY #30 tablet 09/12/17 Folic Acid - 1 mg PO DAILY #30 tablet 09/12/17 Lisinopril [Prinivil -] 40 mg PO DAILY 09/12/17 Thiamine HCl [Vitamin B1 -] 100 mg PO HS #30 tablet 09/12/17 Atorvastatin Ca [Lipitor] 40 mg PO HS #30 tablet 09/13/17
== END 2017-09-13 15:36 | disposition home or self-care (01) | DRG 45 ==
LOC: JER 20:59 → JERBED 09-11 01:38 → OBSVTOIN 09-11 01:38 → INTOOBSV 09-11 01:38 → J4W 09-11 19:15
PROVIDERS: ADMIT Internal Medicine; ATTEND Registered Nurse
DX: I63.9 Cerebral infarction, unspecified (principal); G81.14 Spastic hemiplegia affecting left nondominant side; I10 Essential (primary) hypertension; E78.5 Hyperlipidemia, unspecified; R29.700 NIHSS score 0; F10.20 Alcohol dependence, uncomplicated
CPT/HCPCS: 36415; 70450-TC; 70551-TC; 71010-TC; 80053; 80061; 80307; 82550; 83036; 83721; 83735; 84100; 84443; 84484; 85025; 85610; 93005; 93010; 93306-TC; 93880-TC; 97116-GP; 97161-GP; 99285-25